=== PATIENT | female | born 1960 | race Caucasian/White ===

== ENCOUNTER → 2016-08-09 | Outpatient (CLI) | payer BC ==
[~2016-08-09] MED LIST: CHOL100027 PO; CYAN100T PO; PYRI100T4 PO; TRAM-10 PO
[2016-08-09 14:58] LABS: URINE APPEARANCE CLEAR (CLEAR); URINE BILIRUBIN NEG (NEG); URINE COLOR YELLOW; URINE EPITHELIAL CELL AUTO 0-5 /lpf (0-5); URINE NITRITE NEG (NEG); URINE SPECIFIC GRAVITY 1.011 (1.000-1.030); UROBILINOGEN NEG (NEG); ZZUR CULT IF INDIC CLEAN CATCH NO
[2016-08-09 15:04] LABS: MANUAL MICROSCOPIC REQUIRED? NO; REVIEW REQ? NO
== END | disposition home or self-care (01) ==
LOC: C.LAB1850 13:26
PROVIDERS: ATTEND Internal Medicine
DX: R31.9 Hematuria, unspecified (principal)